=== PATIENT | male | born 1935 | race Caucasian/White ===

== ENCOUNTER 2018-07-01 00:48 | Outpatient (CLI) | payer MEDICARE, BC ==
[2018-07-01 12:14] LABS: Hemoglobin 14.3 g/dL (14.0-18.0); Mean Corpuscular HGB CONC 31.9 g/dL (32.0-36.0); Mean Corpuscular Hemoglobin 29.7 pg (27.0-31.0); Mean Corpuscular Volume 93.3 fL (78.0-98.0); Mean Platelet Volume 7.4 fL (7.4-10.4); Platelet Count 181 thou/uL (130-400); RBC Distribution Width 12.3 % (11.5-14.5)
[2018-07-01 12:17] LABS: PTT 30.6 SEC (22.9-36.1)
[2018-07-01 12:24] LABS: Prothrombin Time 13.6 SEC (12.0-14.7)
[2018-07-01 12:30] LABS: Anion Gap 10 mmol/L (10-20); BUN (Urea Nitrogen) 20 mg/dL (8.4-25.7); Calc. Creatinine Clearance 0 mL/min (70-130); Carbon Dioxide 29 mmol/L (23-31); Chloride 100 mmol/L (98-107); Estimated GFR-MDRD 62; Glucose 80 mg/dL (83-110); Potassium 4.3 mmol/L (3.5-5.1); Sodium 135 mmol/L (136-145)
--- NOTE | 2018-07-02 07:06 | EKG ---
Test Reason : Blood Pressure : / mmHG Vent. Rate : 069 BPM Atrial Rate : 069 BPM P-R Int : 270 ms QRS Dur : 100 ms QT Int : 378 ms P-R-T Axes : 035 -47 034 degrees QTc Int : 405 ms Sinus rhythm with 1st degree A-V block Pulmonary disease pattern /RSR'V1 Incomplete right bundle branch block Left anterior fascicular block Abnormal ECG When compared with ECG of 14-APR-2015 17:08, [place] interval has increased Vent. rate has decreased BY 36 BPM Confirmed by JAMI HALL ([id number]) on 07/02/2018 7:06:36 AM Referred By: EDILIA Confirmed By:JAMI HALL
== END 2018-07-01 00:49 | disposition home or self-care (01) ==
LOC: LABBT 00:48
PROVIDERS: ATTEND Urology
DX: Z01.818 Encounter for other preprocedural examination (principal); R82.8 Abnormal findings on cytological and histological examination of urine; Z85.51 Personal history of malignant neoplasm of bladder
CPT/HCPCS: 80048; 85027; 85610; 85730; 93005; 93010

== ENCOUNTER 2018-07-05 07:14 | Day surgery (SDC) | payer MEDICARE, BC ==
[2018-07-01 11:06] VITALS: BMI 26.2
[2018-07-05] MEDS ORDERED: Iothalamate Meglumine 60% 50 ML VIAL FS ONE (08:38)
[2018-07-05] MEDS ORDERED: Bupivacaine 0.5% 10 ML VIAL ONE (08:54)
[2018-07-05] MEDS ORDERED: Bupivacaine 0.75% W/DEXTROSE 8.25% 2 ML AMP ONE (08:55)
--- NOTE | 2018-07-05 10:43 | RAD ---
RETROGRADE BILATERAL UROGRAMS: DATE: 07/05/2018. HISTORY: Cystogram performed by Dr. Ramirez. FINDINGS: Four images from bilateral retrograde urograms are submitted. There is no evidence of hydronephrosis , although there is slight blunting of the calyces on the left. While ureters are mildly tortuous an d prominent, no filling defects are identified. The urinary bladder is incompletely distended. Thalia elation with intraoperative findings is recommended. POS: JASON
--- NOTE | 2018-07-05 11:04 | OP ---
DATE OF PROCEDURE: 07/05/2018 PREOPERATIVE DIAGNOSES: History of transitional cell cancer of the bladder and recent abnormal cytology. POSTOPERATIVE DIAGNOSES: History of transitional cell cancer of the bladder and recent abnormal cytology. PROCEDURES PERFORMED: Cysto bilateral retrogrades, bladder biopsy, and fulguration. ANESTHESIA: Spinal. ESTIMATED BLOOD LOSS: Minimal. DRAINS PLACED: An 18-[place] Pathak catheter with 20 mL in the balloon. FINDINGS: There is no evidence of any stricture disease. He has had prior TUR of the prostate. He had some thickening of the bladder mucosa along the trigone in the bladder neck on the left than the right side. He had no obvious bladder tumor, foreign body, or stone. He had two ureteral orifices in normal position and retrograde studies did not show any persistent filling defects or abnormalities. OPERATIVE TECHNIQUE: Obtained written and verbal consent from the patient and after receiving IV Ancef, he was taken to the operating suite. He was placed in supine position on the treatment table. PlexiPulses were placed in his lower extremities and turned on. He was given a spinal anesthetic and when cystic effect, he was placed in the dorsal lithotomy position and sterilely prepped and draped. Cystoscopy was performed with a 22-[place] sheath. This was well lubricated and passed under direct vision through the male urethra and into the bladder with an aid with 30-degree lens and video camera and monitor. The bladder was filled and emptied number of times being examined with both the 30 and the 70-degree lens. We then brought back the 30-degree lens and brought in a 5-[place] tip catheter and we did bilateral retrograde studies. This was done by first positioning the patient underneath the camera and getting a projection camera operator film with the fluoroscopy unit. We then passed the catheter into the right ureteral orifice and injected contrast slowly in a retrograde manner filling out the ureter in its entirety in the upper collecting system and taken numerous films. We then did the same on the left side and took drainage films. At this point, we brought in a cold cup biopsy forceps and biopsied areas on the right wall, posterior wall, left wall, trigone, and prostatic urethra. These were then all cauterized with a Bugbee. There was good hemostasis. The instruments were removed. Pathak catheter was sterilely inserted. It was draining clear urine. It was hooked up to a drainage bag and he was taken out of the dorsal lithotomy position. He was then taken by stretcher to the recovery room. Job ID: [id number]
== END 2018-07-05 12:00 | disposition home or self-care (01) ==
LOC: SDC 07:14
PROVIDERS: ATTEND Urology
PROC: 0TBB8ZX Excision of Bladder, Via Natural or Artificial Opening Endoscopic, Diagnostic (ICD-10-PCS; principal; 2018-07-05)
PROC: BT141ZZ Fluoroscopy of Kidneys, Ureters and Bladder using Low Osmolar Contrast (ICD-10-PCS; 2018-07-05)
DX: C67.8 Malignant neoplasm of overlapping sites of bladder (principal); I10 Essential (primary) hypertension; E78.5 Hyperlipidemia, unspecified; M10.9 Gout, unspecified; M19.90 Unspecified osteoarthritis, unspecified site; Z87.891 Personal history of nicotine dependence; Z79.82 Long term (current) use of aspirin; Z79.899 Other long term (current) drug therapy; Z88.2 Allergy status to sulfonamides; Z91.040 Latex allergy status; Z91.048 Other nonmedicinal substance allergy status
CPT/HCPCS: 74420; 88305; 88342; 88360; J3490; Q9961

== ENCOUNTER 2019-08-13 12:42 | Observation (INO) | payer MEDICARE, BC ==
[~2019-08-13 12:42] MED LIST: Iopamidol-370 76% 500 ML 1 ML ONE
--- NOTE | 2019-08-13 13:01 | CT ---
CT HEAD NONCONTRAST: HISTORY: Global aphasia. Chronic altered mental status. FINDINGS: There is no evidence of acute intracranial hemorrhage or infarct. Diffuse cortical atrophy and chroni c ischemic small vessel disease are again demonstrated. Arachnoid cyst at the anterior floor of the left middle cranial fossa is stable. There is no mass effect or shift of midline structures. Visualized paranasal sinuses remain well aera evin. IMPRESSION : Diffuse cortical atrophy and other chronic-type findings are stable. No acute intracranial abnormalit ies are demonstrated. Findings were called to Dr. Mosqueda in the emergency department at 1257 hours. Code CR. Transcribed Date/Time: 08/13/2019 1:31 PM
[2019-08-13 13:05] LABS: Hemoglobin 15.1 g/dL (14.0-18.0); Mean Corpuscular HGB CONC 33.7 g/dL (32.0-36.0); Mean Corpuscular Hemoglobin 31.3 pg (27.0-31.0); Mean Platelet Volume 7.3 fL (7.4-10.4); Platelet Count 154 thou/uL (130-400); RBC Distribution Width 12.8 % (11.5-14.5); Red Blood Cell (RBC) Count 4.82 mill/uL (4.70-6.10)
[2019-08-13 13:10] LABS: PTT 26.5 SEC (22.9-36.1); Prothrombin Time 12.7 SEC (12.0-14.7)
[2019-08-13 13:22] LABS: ALT (SGPT) 12 U/L (8-55); AST (SGOT) 14 U/L (5-34); Albumin 3.9 g/dL (3.4-4.8); Alkaline Phosphatase 59 U/L (40-110); Anion Gap 16 mmol/L (10-20); BUN (Urea Nitrogen) 20 mg/dL (8.4-25.7); Bilirubin, Total 0.7 mg/dL (0.2-1.2); CK (CPK) 49 U/L (30-200); Calc. Creatinine Clearance 0 mL/min (70-130); Calcium 9.3 mg/dL (7.8-10.44); Carbon Dioxide 22 mmol/L (23-31); Chloride 100 mmol/L (98-107); Estimated GFR-MDRD 65; Globulin 3.7 g/dL (2.4-3.5); Glucose 85 mg/dL (83-110); Potassium 4.7 mmol/L (3.5-5.1); Protein, Total 7.6 g/dL (5.8-8.1); Sodium 133 mmol/L (136-145)
[2019-08-13 13:24] LABS: Eosinophils 1 % (0-10); Lymphocytes 74 % (21-51); MDiff Complete? YES; Monocytes 5 % (0-10); Neutrophil 18 % (42-75); Platelet Morphology Comment Appears Adequate; RBC Morphology Normal; Reactive Lymphocytes 2 % (0-10)
--- NOTE | 2019-08-13 13:25 | CT ---
CT ANGIOGRAM NECK WITH IV CONTRAST AND 3D IMAGING CT ARTERIOGRAM HEAD WITH IV CONTRAST AND 3D IMAGING: HISTORY: Global aphasia. CVA. FINDINGS: Calcification throughout the arterial structures. Normal origin of the great vessels at the aortic ar ch with good flow into each carotid and vertebral system. Nonspecific lymph nodes are apparent within the partially visualized upper mediastinum and along each jugular chain. At the right carotid bifurcation, no contrast is seen into the right internal carotid artery. It is r econstituted intracranially by an intact [place]. Left carotid bifurcation and internal carotid artery are widely patent. Hemostasis clips near the left carotid bifurcation suggest prior ochoa rgery. [place] is intact. Good flow into each cerebral and cerebellar system. No enhancing brain le sions are apparent. IMPRESSION : 1. Chronic occlusion of the right internal carotid artery. Stable compared to MRI from 2016. 2. No acute vascular abnormalities are demonstrated. 3. Atherosclerosis. Findings were called to Dr. Mosqueda in the emergency department at 1319 hours. Code CR. Transcribed Date/Time: 08/13/2019 1:34 PM
[2019-08-13] MEDS ORDERED: traMADol HCl 50 MG TAB ONE (13:46)
[2019-08-13 13:57] LABS: Bacteria/HPF None Seen HPF (None Seen); Bilirubin Negative (Negative); Blood, Urine Negative (Negative); Clarity Clear (Clear); Glucose, Urine (Dipstick) Normal (Negative); Leukocyte 250 Leu/uL (Negative); Nitrite Negative (Negative); Protein, Urine (Dipstick) Negative (Neg-Trace); RBC/HPF 0-3 HPF (0-3); Squamous Epithelial 0-3 HPF (0-3); Urobilinogen Normal mg/dL (Less than 2); WBC/HPF 21-50 HPF (0-3)
--- NOTE | 2019-08-13 14:38 | PDOC.FPRHP ---
- History of Present Illness Chief Complaint: Unresponsive History of Present Illness: 83 yo M w/ PMHx of TIA/CVA, CLL, and dementia presented to the ED via EMS due to decreased responsiveness and AMS at home. Daughter over the phone states that due to patient's hx of dementia and CVA's, at baseline he ambulates minimally with a walker, is minimally verbally responsive, and spends most of his time in a recliner. He has known internal carotid stenosis on the right and previously had surgery on his left carotid. This morning when daughter visited pt was less responsive and difficult to arouse so they called EMS. By the time he arrived to the ED pt had waxing and waning level of responsiveness but eventually reached his baseline mental status. Daughter and deny any new recent events or illnesses. No cough, SOB, urine changes, N/V/D. Pt is unable to add to his history but will communicate "yes" and "no" and follow commands well. - Allergies/Adverse Reactions Allergies Allergy/AdvReac Type Severity Reaction Status Date / Time latex Allergy Intermediate BLISTERS Verified 07/31/19 08:10 Sulfa (Sulfonamide Allergy Intermediate Rash Verified 07/31/19 08:10 Antibiotics) adhesive Allergy Verified 07/31/19 08:10 sulfamethoxazole Allergy Rash Verified 07/31/19 08:10 [From Bactrim] trimethoprim [From Bactrim] Allergy Verified 07/31/19 08:10 - Home Medications Medication Instructions Recorded Confirmed Type Aspirin [Ecotrin Low Strength] 81 mg PO DAILY 03/02/14 08/13/19 History Benifiber 2 teaspoon PO HS 03/02/14 08/13/19 History Olmesartan/Hydrochlorothiazide 0.5 tablet PO DAILY 03/02/14 08/13/19 History [Benicar HCT] Ubidecarenone [Co Q-10] 200 mg PO DAILY 03/02/14 08/13/19 History Areds-2 1 tab PO BID 12/13/15 08/13/19 History Rosuvastatin [Crestor] 10 mg PO HS 12/13/15 08/13/19 History Calcium Carbonate [Tums] 1,000 mg PO QID PRN 01/28/16 08/13/19 History Carboxymethylcellulos/Glycerin 5 ml OP TID 01/28/16 08/13/19 History [Refresh Optive Eye Drops] Acetaminophen [Tylenol] 1 cap PO ASDIR PRN 07/01/18 08/13/19 History Memantine HCl 1 tab PO ASDIR 07/01/18 08/13/19 History Multivit-Min/FA/Lycopen/Lutein 1 tab PO Q2DAYS 07/01/18 08/13/19 History [Centrum Silver Tablet] - History PMHx: HTN, HLD, CVA/TIA, bladder cancer (remission), post operative DVT, chronic lymphocytic leukemia PSHx: Bladder resection, left carotid endarterctomy FHx: Non contributory Social: No alcohol, drugs, or tobacco - Review of Systems ROS unobtainable: due to mental status Respiratory: denies: shortness of breath Cardiovascular: denies: chest pain Gastrointestinal: denies: abdominal pain - Vital signs BP: 169/81, MAP: 110, Pulse: 72, Resp: 16, Temp: 98.5 (Oral), Pain: 0, O2 sat: 100 on (Room Air), Wt: 93kg - Physical Exam Constitutional: NAD, well developed HEENT: normocephalic and atraumatic -HEENT: diminished left lateral gaze, likely left visual field deficit Heart: RRR, normal S1/S2, no murmurs/rubs/gallops Lungs: CTAB, no respiratory distress Abdomen: soft, non-tender, bowel sounds present Musculoskeletal: normal structure -Musculoskeletal: Poor muscular tone globally -Neurological: Able to follow commands, visual deficit as above, strength 3/5 globally, poor tongue projection but no deviation, some slightly garbled speech, difficulty with word finding Skin: no rash/lesions, capillary refill <2 seconds -Heme/Lymphatic: Senile purpura to bilateral upper extremities Psychiatric: normal mood and affect FMR H&P: Results - Labs Result Diagrams: 08/13/19 12:48 08/13/19 12:48 Lab results: WBC 18.0 thou/uL (4.8-10.8) H 08/13/19 12:48 Hgb 15.1 g/dL (14.0-18.0) 08/13/19 12:48 Hct 44.8 % (42.0-52.0) 08/13/19 12:48 MCV 93.0 fL (78.0-98.0) 08/13/19 12:48 Plt Count 154 thou/uL (130-400) 08/13/19 12:48 Sodium 133 mmol/L (136-145) L 08/13/19 12:48 Potassium 4.7 mmol/L (3.5-5.1) 08/13/19 12:48 Chloride 100 mmol/L (98-107) 08/13/19 12:48 Carbon Dioxide 22 mmol/L (23-31) L 08/13/19 12:48 BUN 20 mg/dL (8.4-25.7) 08/13/19 12:48 Creatinine 1.08 mg/dL (0.7-1.3) 08/13/19 12:48 Glucose 85 mg/dL (83-110) 08/13/19 12:48 Lactic Acid 1.5 mmol/L (0.5-2.2) 08/13/19 12:48 Calcium 9.3 mg/dL (7.8-10.44) 08/13/19 12:48 Total Bilirubin 0.7 mg/dL (0.2-1.2) 08/13/19 12:48 AST 14 U/L (5-34) 08/13/19 12:48 ALT 12 U/L (8-55) 08/13/19 12:48 Alkaline Phosphatase 59 U/L (40-110) 08/13/19 12:48 Creatine Kinase 49 U/L (30-200) 08/13/19 12:48 Serum Total Protein 7.6 g/dL (5.8-8.1) 08/13/19 12:48 Albumin 3.9 g/dL (3.4-4.8) 08/13/19 12:48 Urine Ketones Negative mg/dL (Negative) 08/13/19 13:40 Urine Blood Negative (Negative) 08/13/19 13:40 Urine Nitrite Negative (Negative) 08/13/19 13:40 Ur Leukocyte Esterase 250 Gonzalez/uL (Negative) A 08/13/19 13:40 Urine RBC 0-3 HPF (0-3) 08/13/19 13:40 Urine WBC 21-50 HPF (0-3) A 08/13/19 13:40 Ur Squamous Epith Cells 0-3 HPF (0-3) 08/13/19 13:40 Urine Bacteria None Seen HPF (None Seen) 08/13/19 13:40 - EKG Interpretation EKG: HR 77, with no ectopics, Interpretation:, Conduction with, ST, T waves normal, [place], left, Other findings include:, First-degree AV block, incomplete right bundle branch block, Clinical impression:, non-specific EKG. - Radiology Interpretation CT scan - head Status: report reviewed by me (Diffuse cortical atrophy and other chronic-type findings are stable. No acute intracranial abnormalities are demonstrated.) Other Status: report reviewed by me (CTA head and neck: 1. Chronic occlusion of the right internal carotid artery. Stable compared to MRI from 2016. 2. No acute vascular abnormalities are demonstrated. 3. Atherosclerosis.) FMR H&P: A/P - Problem List (1) Altered mental status Current Visit: Yes Status: Acute Code(s): R41.82 - ALTERED MENTAL STATUS, UNSPECIFIED (2) CLL (chronic lymphocytic leukemia) Current Visit: Yes Status: Acute Code(s): C91.10 - CHRONIC LYMPHOCYTIC LEUK OF B-CELL TYPE NOT ACHIEVE REMIS (3) Hx of bladder cancer Current Visit: Yes Status: Acute Code(s): Z85.51 - PERSONAL HISTORY OF MALIGNANT NEOPLASM OF BLADDER (4) Hx of deep venous thrombosis Current Visit: Yes Status: Acute Code(s): Z86.718 - PERSONAL HISTORY OF OTHER VENOUS THROMBOSIS AND EMBOLISM (5) History of CVA (cerebrovascular accident) Current Visit: Yes Status: Acute Code(s): Z86.73 - PRSNL HX OF TIA (TIA), AND CEREB INFRC W/O RESID DEFICITS (6) Internal carotid artery stenosis Current Visit: Yes Status: Acute Code(s): I65.29 - OCCLUSION AND STENOSIS OF UNSPECIFIED CAROTID ARTERY (7) Dyslipidemia Current Visit: No Status: Chronic Code(s): E78.5 - HYPERLIPIDEMIA, UNSPECIFIED (8) HTN (hypertension) Current Visit: No Status: Chronic Code(s): I10 - ESSENTIAL (PRIMARY) HYPERTENSION - Plan Altered Mental Status 2/2 TIA vs CVA - Hx of TIA and CVA with known carotid stenosis and previous endarterectomy - CT head consistent with old infarcts - CTA head and neck - chronic right internal carotid stenosis and left carotid post operative changes - Dysphagia screen ordered, NPO until completed - PT/OT/Speech consulted - MRI brain - TSH ordered - Recent normal echo last month, will no repeat - NIH stroke scales and neuro checks per protocol - Will medically optimize with full dose asa and high dose statin - Admit stroke obs Chronic Medical Problems: HTN - Hold home benicar for 24hr permissive htn HLD - Increase crestor to 20mg CLL - Leukocytosis at 18, stable per history, expectant management Carotid stenosis - complete on the right, not surgical candidate, medically optimize as above Hx of bladder cancer - Per family is in remission VTE: Lovenox Diet: NPO until screened then HH IVF: SL Code: DNAR Dispo: Admit to stroke obs for further neuro monitoring and imaging. Will medically optimize the patient prior to discharge. ELOS <48 hr PCP: Dr. Chris Christian FMR H&P: Upper Level - Plan Date/Time: 08/13/19 9838 I, Epifanio Stewart DO, have evaluated this patient and agree with findings/plan as outlined by internet ecommerce specialist resident. Pertinent changes/additions are listed here. HPI Mr. Castano is an 83 yo male with a pmhx significant for CVA, R ICA occlusion, L endarterectomy, advanced dementia At the time of my examination is intermittently AOx1, which is baseline per family. He has advanced dementia and unable to provide hx. Per family and ED records he was in his usual state of health this morning when he became somnolent and non-verbal, when this persisted family decided to bring him to ED. They report he has had these episodes previously. They deny any complaints of chest pain, sob, fever, dysuria or other pain. PE General: NAD HEENT: NCAT Chest: even inspiratory and expiratory effort, no retractions Abdomen: non distended, NTTP MSK: no weakness, or loss of ROM noted Extremities: non-edematous, pulses present Neuro: word finding difficulty, CN II-XII intact, strength 5/5, no focal deficits See internet ecommerce specialist portion for full ROS, PE, labs and vitals. A/P TIA in the setting of CVA, recurrent TIAs - currently at baseline per family, labs wnl, CTA head/neck show previously demonstrated lesions - EKG 1st degree AV block - full risk stratification, MRI brain pending - asa 325, increase statin, permissive htn 24 hrs Htn - permissive htn CLL - stage one, stable per family Dispo: stroke obs for further risk stratification and monitoring Addendum - Attending - Attending Attestation Date/Time: 08/13/19 3485 I personally evaluated the patient and discussed the management with Dr. Albright/ Terry. I agree with the History, Examination, Assessment and Plan documented above with any addition or exceptions noted below.
[2019-08-13] MEDS ORDERED: Aspirin Chewable 81 MG TAB ONE (14:59)
[2019-08-13 16:08] VITALS: BMI 27.2
[2019-08-13] MEDS ORDERED: Acetaminophen 325 MG TAB PO PRN (16:17)
[2019-08-13] MEDS ORDERED: hydrALAZINE 20 MG/ML VIAL SLOW IVP PRN (16:17)
[2019-08-13] MEDS ORDERED: Calcium Carbonate 500 MG ChewTAB PO PRN (16:27)
[2019-08-13] MEDS ORDERED: Enoxaparin Sodium 40 MG/0.4 ML SYRINGE SC SCH (16:30)
[2019-08-13] MEDS ORDERED: Prevnar 13-Val Conj/PF 0.5 ML SYRINGE IM ONE (16:30)
[2019-08-13] MEDS: Polyvinyl Alcohol 1.4%/Povidone 0.6% Opth Drops EA EYE SCH (20:58)
[2019-08-13] MEDS ORDERED: Rosuvastatin 20 MG TAB PO SCH (21:00)
[2019-08-13] MEDS ORDERED: REFRESH PLUS (Carboxymethylcellulose 0.5%) Opth Drops EA EYE SCH (21:00)
[2019-08-14 04:48] LABS: Anion Gap 13 mmol/L (10-20); BUN (Urea Nitrogen) 18 mg/dL (8.4-25.7); Calc. Creatinine Clearance 82 mL/min (70-130); Calcium 9.2 mg/dL (7.8-10.44); Carbon Dioxide 26 mmol/L (23-31); Cardiac Risk 3.8 (Less than 4.5); Chloride 100 mmol/L (98-107); Cholesterol 128 mg/dl (< 200 Desired); Estimated GFR-MDRD 81; Glucose 94 mg/dL (83-110); HDL Cholesterol 34 mg/dL (>60 Neg Risk); LDL Cholesterol, Calculated 61 mg/dL; Sodium 135 mmol/L (136-145); Triglycerides 167 mg/dL (Less than 150)
[2019-08-14 05:07] LABS: Eosinophils 1 % (0-10); Hemoglobin 14.9 g/dL (14.0-18.0); Lymphocytes 39 % (21-51); MDiff Complete? YES; Mean Corpuscular HGB CONC 33.8 g/dL (32.0-36.0); Mean Corpuscular Hemoglobin 30.9 pg (27.0-31.0); Mean Corpuscular Volume 91.3 fL (78.0-98.0); Mean Platelet Volume 7.3 fL (7.4-10.4); Monocytes 4 % (0-10); Neutrophil 47 % (42-75); Platelet Count 151 thou/uL (130-400); Platelet Morphology Comment Appears Adequate; RBC Distribution Width 12.6 % (11.5-14.5); Reactive Lymphocytes 9 % (0-10); Red Blood Cell (RBC) Count 4.84 mill/uL (4.70-6.10); White Blood Cell (WBC) Count 18.2 thou/uL (4.8-10.8)
--- NOTE | 2019-08-14 06:11 | PDOC.FM ---
- Subjective Subjective: Pt without complaints this morning. Recalls having issues yesterday and feels these have all resolved. Voices understanding about the plan of care for today. No events overnight. No further neurologic manifestations or derangements since admission. - Objective Vital Signs & Weight: Vital Signs (12 hours) Temp Pulse Resp BP BP Pulse Ox 08/14/19 00:00 97.7 F 75 16 150/68 H 94 L 08/13/19 20:00 98.1 F 82 14 140/68 96 Weight Weight 91.2 kg I&O: 08/12/19 08/13/19 08/14/19 06:59 06:59 06:59 Intake Total 400 Output Total 400 Balance 0 Result Diagrams: 08/14/19 04:11 08/14/19 04:11 Phys Exam - Physical Examination Constitutional: NAD HEENT: sclera anicteric Neck: full ROM No respiratory distress Cardiovascular: RRR, no significant murmur Musculoskeletal: no edema Slow but comlete responses, moves all 4 extremities spontaneously, no droop Appears to continue to be at baseline Psychiatric: normal affect Deviation from normal: A&O to self Dx/Plan (1) Altered mental status Code(s): R41.82 - ALTERED MENTAL STATUS, UNSPECIFIED Status: Acute (2) CLL (chronic lymphocytic leukemia) Code(s): C91.10 - CHRONIC LYMPHOCYTIC LEUK OF B-CELL TYPE NOT ACHIEVE REMIS Status: Acute (3) Hx of bladder cancer Code(s): Z85.51 - PERSONAL HISTORY OF MALIGNANT NEOPLASM OF BLADDER Status: Acute (4) Hx of deep venous thrombosis Code(s): Z86.718 - PERSONAL HISTORY OF OTHER VENOUS THROMBOSIS AND EMBOLISM Status: Acute (5) History of CVA (cerebrovascular accident) Code(s): Z86.73 - PRSNL HX OF TIA (TIA), AND CEREB INFRC W/O RESID DEFICITS Status: Acute (6) Internal carotid artery stenosis Code(s): I65.29 - OCCLUSION AND STENOSIS OF UNSPECIFIED CAROTID ARTERY Status : Acute (7) Dyslipidemia Code(s): E78.5 - HYPERLIPIDEMIA, UNSPECIFIED Status: Chronic (8) HTN (hypertension) Code(s): I10 - ESSENTIAL (PRIMARY) HYPERTENSION Status: Chronic - Plan Plan: Altered Mental Status 2/2 TIA vs CVA - PT/OT/Speech consulted - MRI brain ordered - TSH nml - Recent normal echo last month, will no repeat - full dose asa and high dose statin Chronic Medical Problems: HTN - Restart home benicar today HLD - Increased crestor to 20mg CLL - Leukocytosis at 18, stable per history, expectant management Carotid stenosis - complete right ICA, not surgical candidate, medically optimize as above Hx of bladder cancer - Per family is in remission VTE: Lovenox Diet: HH IVF: SL Code: DNAR Dispo: Stroke Obs for CVA/TIA evaluation. Clinically stable. Awaiting MRI today. Has had recent echo that was normal. Family expressed wishes to avoid any surgeries/procedures. Will medically optimize the patient prior to discharge. ELOS <48 hr PCP: Dr. Chris Christian Addendum - Attending - Attending Attestation Date/Time: 08/14/19 7362 I personally evaluated the patient and discussed the management with Dr. Albright. I agree with the History, Examination, Assessment and Plan documented above with any addition or exceptions noted below. Patient back to baseline. Awaiting MRI today but anticipate he will be stable for discharge once that results. Statin increased.
[2019-08-14] MEDS: Polyvinyl Alcohol 1.4%/Povidone 0.6% Opth Drops EA EYE SCH (08:39)
[2019-08-14] MEDS ORDERED: Enoxaparin Sodium 40 MG/0.4 ML SYRINGE SC SCH (09:00)
[2019-08-14] MEDS ORDERED: Hydrochlorothiazide 25 MG TAB PO SCH (09:00)
[2019-08-14] MEDS ORDERED: Ubidecarenone 50 MG CAP PO SCH (09:00)
[2019-08-14] MEDS ORDERED: Losartan 25 MG TAB PO SCH (09:00)
[2019-08-14] MEDS ORDERED: Multivitamin W/ Minerals 1 TAB PO SCH (09:00)
[2019-08-14] MEDS ORDERED: Aspirin 325 mg Enteric Coated Tablet PO SCH (09:00)
--- NOTE | 2019-08-14 10:17 | MRI ---
MRI brain noncontrast HISTORY: CVA. COMPARISON: 03/18/2016. FINDINGS: There is no evidence of acute intracranial hemorrhage or infarct. Diffuse cortical atrophy and mild chronic ischemic small vessel disease are similar in appearance to the prior study. Arachnoid cyst at the anterior floor of the left middle cranial fossa is unchanged in appearance from the prior exam. Signal within the expected course of the right internal carotid artery is consistent with known chron ic occlusion. Mucosal thickening is now evident within the left mastoid air cells in addition to the right. IMPRESSION : Right ICA occlusion and other chronic-type findings are stable. No acute intracranial abnormalities are demonstrated.
[2019-08-14 11:40] VITALS: TEMP 98.5
[2019-08-14 13:55] VITALS: BP 151/70
--- NOTE | 2019-08-14 18:19 | DIS ---
DATE OF ADMISSION: 08/13/2019 DATE OF DISCHARGE: 08/14/2019 DISCHARGE ATTENDING: Joshua Knight MD RESIDENT: Josh Albright DO PRIMARY CARE PHYSICIAN: Shon Pena MD CONSULTATIONS: None. PROCEDURES AND IMAGING: Brain CT. Impression, diffuse cortical atrophy and other contact findings that are stable with no acute intracranial abnormalities. CTA of head and neck. Impression, chronic occlusion of the right internal carotid artery, stable from MRI in 2016. No acute vascular abnormalities demonstrated. Atherosclerosis. Brain MRI. Impression. Right ICA occlusion and other chronic-type findings that are stable with no acute intracranial abnormalities noted. PRIMARY DIAGNOSES: 1. Transient ischemic attack. 2. Chronic right internal carotid artery stenosis. 3. Dementia. SECONDARY DIAGNOSES: 1. Chronic lymphocytic leukemia. 2. Dyslipidemia. 3. Hypertension. DISCHARGE MEDICATIONS: 1. Benefiber 2 teaspoons at bedtime. 2. CoQ10 of 200 mg daily. 3. Aspirin 325 mg daily. 4. Benicar 40/25 mg p.o. daily. 5. AREDS-2 one tablet p.o. b.i.d. 6. Tums 1000 mg p.o. q.i.d. 7. Refresh Optive eye drops 15 mL drops 5 mL OP t.i.d. 8. Memantine 10 mg p.o. as directed. 9. Centrum Silver tablet p.o. daily. 10. Crestor 20 mg p.o. at bedtime. DISCONTINUED MEDICATIONS: 1. Aspirin 81 mg daily. 2. Crestor 10 mg daily. HISTORY OF PRESENT ILLNESS AND HOSPITAL COURSE: An 83-year-old male with past medical history significant for both TIA and CVA, presented to the emergency department via EMS with complaints of altered mental status. Due to difficulty obtaining history from the patient, the patient's daughter and who is MPOA, were contacted. They stated that due to the patient's baseline dementia and history of TIA and CVA, his baseline mental status is low with his baseline function being minimal ambulation with a walker and spending most of the time in a recliner. They state that he is able to speak short responses, but has a little to no long or short-term memory at this point. They stated that the reason that they called EMS was because the patient was less responsive than he usually is at his baseline, and the last time he was like this was about a year ago when he was diagnosed with a transient ischemic attack. Upon presentation to the emergency department, the patient had waxing and waning mental status with an upward trend eventually settling at baseline. He had a CT and CTA of the head and neck that showed no acute stroke, but chronic right internal carotid artery stenosis. The patient was subsequently admitted to the hospital for neurostatus monitoring and further neuroimaging. The following day, the patient had an MRI of his brain, which showed consistent findings to the CT and agreed with all chronic and stable findings of chronic ischemic vessel changes and right internal carotid artery stenosis. At the time of discharge, the patient remained at baseline mental status. MPOA and daughter were contacted and informed of these findings and were agreeable to take the patient home for further home care. DISCHARGE INSTRUCTIONS: 1. Location: Home. 2. Diet: Heart healthy. 3. Activity: As tolerated. 4. Followup: Follow up with primary doctor, Dr. Pena, within 7 days. Job ID: [id number]
--- NOTE | 2019-08-15 16:36 | CT ---
CT ANGIOGRAM NECK WITH IV CONTRAST AND 3D IMAGING CT ARTERIOGRAM HEAD WITH IV CONTRAST AND 3D IMAGING: HISTORY: Global aphasia. CVA. FINDINGS: Calcification throughout the arterial structures. Normal origin of the great vessels at the aortic ar ch with good flow into each carotid and vertebral system. Nonspecific lymph nodes are apparent within the partially visualized upper mediastinum and along each jugular chain. At the right carotid bifurcation, no contrast is seen into the right internal carotid artery. It is r econstituted intracranially by an intact [place]. Left carotid bifurcation and internal carotid artery are widely patent. Hemostasis clips near the left carotid bifurcation suggest prior ochoa rgery. [place] is intact. Good flow into each cerebral and cerebellar system. No enhancing brain le sions are apparent. IMPRESSION : 1. Chronic occlusion of the right internal carotid artery. Stable compared to MRI from 2016. 2. No acute vascular abnormalities are demonstrated. 3. Atherosclerosis. Findings were called to Dr. Mosqueda in the emergency department at 1319 hours. Code CR. Transcribed Date/Time: 08/15/2019 4:36 PM
--- NOTE | 2019-08-17 13:10 | EKG ---
Test Reason : ERS.MLO Blood Pressure : / mmHG Vent. Rate : 077 BPM Atrial Rate : 077 BPM P-R Int : 278 ms QRS Dur : 106 ms QT Int : 374 ms P-R-T Axes : 044 -44 021 degrees QTc Int : 423 ms Sinus rhythm with 1st degree A-V block Left axis deviation Incomplete right bundle branch block Possible Anterolateral infarct , age undetermined Abnormal ECG Confirmed by LIANE ACEVEDO DO ([id number]), avid editor LV CRAVEN ([id number]) on 08/17/2019 1:10:41 PM Referred By: Confirmed By:LIANE ACEVEDO DO
== END 2019-08-14 15:16 | disposition home or self-care (01) ==
LOC: ERS 12:42 → 2SE 15:56
PROVIDERS: ADMIT Student in an Organized Health Care Education/Training Program; ATTEND Student in an Organized Health Care Education/Training Program
DX: I65.21 Occlusion and stenosis of right carotid artery (principal); F03.90 Unspecified dementia, unspecified severity, without behavioral disturbance, psychotic disturbance, mood disturbance, and anxiety; C91.10 Chronic lymphocytic leukemia of B-cell type not having achieved remission; E78.5 Hyperlipidemia, unspecified; I10 Essential (primary) hypertension; I70.90 Unspecified atherosclerosis; Z66 Do not resuscitate; Z85.51 Personal history of malignant neoplasm of bladder; Z86.718 Personal history of other venous thrombosis and embolism; Z86.73 Personal history of transient ischemic attack (TIA), and cerebral infarction without residual deficits; Z87.891 Personal history of nicotine dependence; Z79.82 Long term (current) use of aspirin; Z79.899 Other long term (current) drug therapy; Z88.2 Allergy status to sulfonamides; Z88.8 Allergy status to other drugs, medicaments and biological substances; Z91.040 Latex allergy status; Z91.048 Other nonmedicinal substance allergy status; Z98.890 Other specified postprocedural states
CPT/HCPCS: 51701; 70450; 70496; 70498; 70551; 80048; 80061; 82550; 82962; 83605; 84484; 85025; 85610; 85730; 93005; 94760; 96372 ×2; 97116; 97139; 99285; G0378 ×3; 36415; 36416; 80053; 81003; 81015; 84443; J1650; Q9967

== ENCOUNTER 2019-08-16 14:18 | Inpatient (IN) | payer MEDICARE, BC ==
--- NOTE | 2019-08-16 14:55 | RAD ---
Exam: Chest one view HISTORY:Altered mental status. Right-sided weakness from stroke last week. Comparison: None FINDINGS: Cardiac silhouette: Normal Aorta: Atherosclerosis Pulmonary vessels: Normal Costophrenic angles: Clear LUNGS: No masses or consolidation. Pneumothorax: None Osseous abnormalities: None IMPRESSION: No acute cardiopulmonary process. Atherosclerosis.
[2019-08-16 14:58] LABS: Base Excess-Venous 2.7 mmol/L (-2.0 to 3.0); Bicarbonate (HCO3v) 26.7 mmol/L (22.0-28.0); CO2 Tension (PvCO2) 38.3 mmHg (40.0-50.0); Chloride 98 mmol/L (98-107); Hemoglobin - Calc 15.2 g/dL (14.0-18.0); Potassium 3.9 mmol/L (3.5-5.1); Sodium 134 mmol/L (138-145); T. Carbon Dioxide 27.9 mmol/L (22.0-28.0); vO2 Saturation-calc 67.1 % (60.0-85.0)
[2019-08-16 14:58] LABS: Hemoglobin 14.6 g/dL (14.0-18.0); Mean Corpuscular HGB CONC 32.9 g/dL (32.0-36.0); Mean Corpuscular Hemoglobin 30.3 pg (27.0-31.0); Mean Corpuscular Volume 92.3 fL (78.0-98.0); Mean Platelet Volume 7.1 fL (7.4-10.4); Platelet Count 165 thou/uL (130-400); RBC Distribution Width 12.8 % (11.5-14.5); Red Blood Cell (RBC) Count 4.82 mill/uL (4.70-6.10)
[2019-08-16 15:02] LABS: Bilirubin Negative (Negative); Blood, Urine Negative (Negative); Clarity Turbid (Clear); Glucose, Urine (Dipstick) Normal (Negative); Leukocyte 500 Leu/uL (Negative); Nitrite Negative (Negative); Protein, Urine (Dipstick) Negative (Neg-Trace); RBC/HPF 0-3 HPF (0-3); Squamous Epithelial 0-3 HPF (0-3); WBC/HPF Greater than 50 HPF (0-3)
[2019-08-16 15:13] LABS: Eosinophils 3 % (0-10); Lymphocytes 62 % (21-51); MDiff Complete? YES; Monocytes 3 % (0-10); Neutrophil 31 % (42-75); Platelet Morphology Comment Appears Adequate; RBC Morphology Normal; Reactive Lymphocytes 1 % (0-10)
[2019-08-16 15:17] LABS: Bacteria/HPF 2+ HPF (None Seen)
[2019-08-16 15:18] LABS: Renal Epithelial 0-3 HPF (None Seen); Transitional Epithelial 0-3 HPF (None Seen)
[2019-08-16 15:20] LABS: ALT (SGPT) 17 U/L (8-55); AST (SGOT) 14 U/L (5-34); Alkaline Phosphatase 71 U/L (40-110); Anion Gap 12 mmol/L (10-20); BUN (Urea Nitrogen) 23 mg/dL (8.4-25.7); Bilirubin, Total 0.6 mg/dL (0.2-1.2); CK (CPK) 77 U/L (30-200); Calc. Creatinine Clearance 0 mL/min (70-130); Calcium 9.2 mg/dL (7.8-10.44); Carbon Dioxide 28 mmol/L (23-31); Chloride 99 mmol/L (98-107); Estimated GFR-MDRD 59; Globulin 2.7 g/dL (2.4-3.5); Glucose 102 mg/dL (83-110); Protein, Total 6.7 g/dL (5.8-8.1); Sodium 135 mmol/L (136-145)
[2019-08-16] MEDS ORDERED: cefTRIAXone\\ROCEPHIN 1 GM VIAL ONE (15:53)
--- NOTE | 2019-08-16 16:45 | CT ---
Exam: Head CT without contrast HISTORY: Lethargy. Right-sided weakness. Recent stroke COMPARISON: 08/13/2019 FINDINGS: Hemorrhage: No intraparenchymal hemorrhage or extra-axial hematoma. Brain parenchyma: Cortical hernandez-white matter differentiation is preserved. No mass effect or midline shift. Basilar cisterns are patent. Ventricular system: Ventricles and sulci are patent and symmetric. Stable arachnoid cyst in the left middle cranial fossa. Calvarium: Intact. Sinuses and mastoid air cells: Adequate aeration. IMPRESSION: No acute intracranial process. No significant interval change.
--- NOTE | 2019-08-16 18:15 | PDOC.FPRHP ---
- History of Present Illness Chief Complaint: AMS History of Present Illness: Pt is an 83 yo male with PMH significant for dementia, HLD, hx of TIA vs CVA, R ICA stenosis, HTN, chronic lymphocytic leukemia who presents for AMS. He was just discharged 2 days ago for TIA work up after AMS. He lives with his who he went back to live with. His daughter was apart of his care this previous week. He is AAO x 0 during interview but is able to elicit how he is feeling. GSC 15. His is not present at the time so unable to obtain a full history. Due to AMS only able to obtain from pt no current cough, chest pain, abdominal pain, diarrhea. He states he has pain with urination. Currently in brief. Daughter had pt sent to ED by EMS. Amparo Ortiz, . She states he had an episode of unresponsiveness this morning. This was similar to how he presented on last admission. Family states over the last year he has had some stressful situations and did not return baseline after events. Family does not believe he returned to baseline after this previous admission due to waxing and waning mentation. They had help at home but due to COVID they do not have extra help. They would like to see him return to home. His last visit he had negative work up for acute CVA but chronic changes were noted. He does have a stable R ICA stenosis. Imaging revealed previous clippings from a likely surgery to his L ICA. In the ED he was found to have a possible UTI and treated with ceftriaxone. He was not given any fluids, vitals were stable other than mild HTN. - Allergies/Adverse Reactions Allergies Allergy/AdvReac Type Severity Reaction Status Date / Time latex Allergy Intermediate BLISTERS Verified 07/31/19 08:10 Sulfa (Sulfonamide Allergy Intermediate Rash Verified 07/31/19 08:10 Antibiotics) adhesive Allergy Verified 07/31/19 08:10 sulfamethoxazole Allergy Rash Verified 07/31/19 08:10 [From Bactrim] trimethoprim [From Bactrim] Allergy Verified 07/31/19 08:10 - Home Medications Medication Instructions Recorded Confirmed Type Benifiber 2 teaspoon PO HS 03/02/14 08/13/19 History Olmesartan/Hydrochlorothiazide 0.5 tablet PO DAILY 03/02/14 08/13/19 History [Benicar HCT] Ubidecarenone [Co Q-10] 200 mg PO DAILY 03/02/14 08/13/19 History Areds-2 1 tab PO BID 12/13/15 08/13/19 History Calcium Carbonate [Tums] 1,000 mg PO QID PRN 01/28/16 08/13/19 History Carboxymethylcellulos/Glycerin 5 ml OP TID 01/28/16 08/13/19 History [Refresh Optive Eye Drops] Acetaminophen [Tylenol] 1 cap PO ASDIR PRN 07/01/18 08/13/19 History Memantine HCl 1 tab PO ASDIR 07/01/18 08/13/19 History Multivit-Min/FA/Lycopen/Lutein 1 tab PO Q2DAYS 07/01/18 08/13/19 History [Centrum Silver Tablet] Aspirin [Ecotrin Regular Strength] 325 mg PO DAILY #30 tab 08/14/19 Rx Rosuvastatin [Crestor] 20 mg PO HS #30 tab 08/14/19 Rx - History PMHx: HTN, HLD, TIA vs CVA, R ICA Stenosis, CLL, bladder cancer (remission), post op DVT PSHx: L ICA endarterectomy, bladder resection FHx: non-contributory Social: no alcohol, drug, tobacco abuse - Review of Systems ROS unobtainable: other (See HPI for ROS able to be obtained from pt.) - Vital signs BP: 165/83 HR: 71 RR: 18 Tmax: 98.6 Pox: 96% on RA Wt: 86 kg - Physical Exam Constitutional: NAD, well developed HEENT: normocephalic and atraumatic, PERRLA, EOMI, conjunctiva clear, no scleral icterus, grossly normal hearing, normal nasal mucosa, MMM Neck: supple, FROM, trachea midline, no JVD Chest: no-tender to palpation, no lesions Heart: RRR, normal S1/S2, no murmurs/rubs/gallops, pulses present, no edema -Heart: distant heart sounds, did not appreciate carotid bruit Lungs: CTAB, no respiratory distress, good air movement, no rales/rhonchi -Lungs: Difficult to assess as pt has hard time rolling to side on his own. Abdomen: soft, non-tender, bowel sounds present Musculoskeletal: normal tone, ROM grossly normal Neurological: no focal deficit, CN II-XII intact, normal sensation Skin: good turgor, capillary refill <2 seconds, no jaundice Heme/Lymphatic: no petechia -Heme/Lymphatic: superficial ecchymosis on R arm -Psychiatric: AAO X 0, poor short term memory, conversation and can answer direct questions, GCS 15 FMR H&P: Results - Labs Result Diagrams: 08/16/19 14:46 08/16/19 14:46 Lab results: WBC 16.0 thou/uL (4.8-10.8) H 08/16/19 14:46 Hgb 14.6 g/dL (14.0-18.0) 08/16/19 14:46 Hct 44.5 % (42.0-52.0) 08/16/19 14:46 MCV 92.3 fL (78.0-98.0) 08/16/19 14:46 Plt Count 165 thou/uL (130-400) 08/16/19 14:46 VBG pCO2 38.3 mmHg (40.0-50.0) L 08/16/19 14:56 VBG pO2 33.2 mmHg (35.0-45.0) L 08/16/19 14:56 Sodium 135 mmol/L (136-145) L 08/16/19 14:46 Potassium 4.0 mmol/L (3.5-5.1) 08/16/19 14:46 Chloride 99 mmol/L (98-107) 08/16/19 14:46 Carbon Dioxide 28 mmol/L (23-31) 08/16/19 14:46 BUN 23 mg/dL (8.4-25.7) 08/16/19 14:46 Creatinine 1.18 mg/dL (0.7-1.3) 08/16/19 14:46 Glucose 102 mg/dL (83-110) 08/16/19 14:46 Calcium 9.2 mg/dL (7.8-10.44) 08/16/19 14:46 Total Bilirubin 0.6 mg/dL (0.2-1.2) 08/16/19 14:46 AST 14 U/L (5-34) 08/16/19 14:46 ALT 17 U/L (8-55) 08/16/19 14:46 Alkaline Phosphatase 71 U/L (40-110) 08/16/19 14:46 Ammonia 26 umol/L (18-72) 08/16/19 14:46 Creatine Kinase 77 U/L (30-200) 08/16/19 14:46 Serum Total Protein 6.7 g/dL (5.8-8.1) 08/16/19 14:46 Albumin 4.0 g/dL (3.4-4.8) 08/16/19 14:46 Urine Ketones Negative mg/dL (Negative) 08/16/19 14:30 Urine Blood Negative (Negative) 08/16/19 14:30 Urine Nitrite Negative (Negative) 08/16/19 14:30 Ur Leukocyte Esterase 500 Gonzalez/uL (Negative) A 08/16/19 14:30 Urine RBC 0-3 HPF (0-3) 08/16/19 14:30 Urine WBC Greater than 50 HPF (0-3) A 08/16/19 14:30 Ur Squamous Epith Cells 0-3 HPF (0-3) 08/16/19 14:30 Urine Bacteria 2+ HPF (None Seen) A 08/16/19 14:30 - EKG Interpretation EKG: RRR, First degree AV block - Radiology Interpretation Chest x-ray Status: image reviewed by me, report reviewed by me Additional comment: no acute abnormalities CT scan - head Status: report reviewed by me Additional comment: no acute processes FMR H&P: A/P - Problem List (1) Altered mental status Current Visit: No Status: Acute Code(s): R41.82 - ALTERED MENTAL STATUS, UNSPECIFIED (2) CLL (chronic lymphocytic leukemia) Current Visit: No Status: Acute Code(s): C91.10 - CHRONIC LYMPHOCYTIC LEUK OF B-CELL TYPE NOT ACHIEVE REMIS (3) History of CVA (cerebrovascular accident) Current Visit: No Status: Acute Code(s): Z86.73 - PRSNL HX OF TIA (TIA), AND CEREB INFRC W/O RESID DEFICITS (4) Internal carotid artery stenosis Current Visit: No Status: Acute Code(s): I65.29 - OCCLUSION AND STENOSIS OF UNSPECIFIED CAROTID ARTERY (5) Dyslipidemia Current Visit: No Status: Chronic Code(s): E78.5 - HYPERLIPIDEMIA, UNSPECIFIED (6) HTN (hypertension) Current Visit: No Status: Chronic Code(s): I10 - ESSENTIAL (PRIMARY) HYPERTENSION (7) Urinary tract infection Current Visit: Yes Status: Acute - Plan Pt is an 83 yo male here for: # UTI No bands noted, total neutrophils ~5. WBC elevated due to CLL. Pt admitted to dysuria but unsure if accurate with pt's AMS. - continue ceftriaxone - culture, gram stain pending # Progressive Dementia vs Acute Metabolic Encephalopathy I believe this to be worsening dementia as opposed to encephalopathy. Fam states pt has worsening dementia over previous year. - will discuss goals of care in the am on rounds. Already discussed possible placement but family would like to see pt home. Fam will be in around 0900 or 0930. - CM consulted - PT/OT ordered # Hx of CVA # Recent Discharge for TIA Recent imaging did not reveal CVA. Less likely pt has had a TIA vs CVA. Pt has no focal deficits. - continue home meds # Dyslipidemia -continue home meds # HTN - continue ho me meds # R ICA Occlusion - stable on last admission, 08/14/19 # Chronic Lymphocytic Leukemia WBC, lymphocytes at baseline. - stable MPOA - Daughter - called EMS; Amparo Ortiz - [phone] Code: DNR Fluids: SL Diet: HH DVT: lovenox Dispo: Obs on medicine FMR H&P: Upper Level - Pertinent history 83 yo M with h/o of chronic right internal carotid artery stenosis, TIA and dementia brought in by EMS for episode of unresponsiveness. History is elicited by daughter and since patient had chronic dementia. Unresponsiveness happened after lunch, was taking a nap and couldn't wake him up. Similar episode has occurred twice before most recently prior to this last hospitalization. At baseline patient is A&O x0 but conversational. Daughter says last time she has seen him at baseline was two weeks ago. States her father hasn't had any complaints. In ER was awake and responsive by the time he arrived. Was found to have a UTI and given rocephin. - Pertinent findings VS: BP 165/83 P 71 RR 18 T 98.6 PE: A&O x1 (person) Neuro: No FND CV:RRR Resp: CTAB, no respiratory distress Labs: UA Bacteria2+, WBC >50 hpf, leukocyte 500, turbid WBC 16, no bands - Plan Date/Time: 04/07/20 1813 #. Uncomplicated UTI -WBC 16 however has CLL, no bandemia or other sirs criteria met -UA: Bacteria, UA, WBC -s/p rocephin, continue, pending UCx #. Encephalopathy -acute vs chronic -May be new patient's baseline given recent hospitalizations and chronic dementia -W/u for encephalopathy negative thus far with neg. troponins, electrolytes WNL. -Could be attributable to UTI -CT head: no new changes -Pt on maximum medical mgmt for his R ICA stenosis, could consider addition of plavix if encephalopathy thought to be attributable to possible TIA. No need for further workup at this point with recent imaging (MRI/CT) negative for CVA last hospitalization and in light of new new neurologic changes. Also patient may not be a good surgical candidate for surgical intervention. Can further discuss with family tomorrow. -Will obtain TSH #. Dementia -Mental status at baseline (A&O x0 but conversational) per daughter/ #. Physical deconditioning - Discussed potential placement/rehab with family. Wants to continue discussion in AM when they can come to hospital #. HTN -Resume home meds #. HLD -Resume home meds #. Hx of R ICA stenosis, chronic #. Hx of TIA -On last hospitalization had full workup Code: DNR Dispo: <2 midnights I, Moriah Blank MD, have evaluated this patient and agree with findings/ plan as outlined by internal control specialist resident. Pertinent changes/additions are listed here. Addendum - Attending - Attending Attestation Date/Time: 08/17/19 0151 I personally evaluated the patient at 2030 and discussed the management with Dr. Salcedo/Abhay. I agree with the History, Examination, Assessment and Plan documented above with any addition or exceptions noted below. 83 yo WM PMH dementia with baseline mentation of A&O to person, known carotid artery stenosis and recent hospitalization for TIA evaluation. presented from home with a CC of worsening mentation and difficulty ambulating. Exam repeated and agree with above. Labs remarkable for possible UTI. CXR and CT brain negative. Observation for altered mental status 2/2 possible UTI. Continue rocephin. Will have discussion with patient's family about placement in nursing facility. Obs, medical, <2 midnight.
[2019-08-16 19:08] LABS: Troponin I Less than 0.010 ng/mL (< 0.028)
[2019-08-16] MEDS ORDERED: Acetaminophen 325 MG TAB PO PRN (19:53)
[2019-08-17] MEDS ORDERED: OLMESARTAN PO SCH ×2 (01:20→09:00)
[2019-08-17] MEDS ORDERED: HYDROCHLOROTHIAZIDE PO SCH ×2 (01:20→09:00)
[2019-08-17] MEDS ORDERED: Calcium Carbonate 500 MG ChewTAB PO PRN (04:29)
[2019-08-17] MEDS ORDERED: Non-Formulary Item 1 EACH (Acetaminophen [Tylenol] 1 CAP) PO PRN (04:29)
[2019-08-17 05:49] LABS: Anion Gap 11 mmol/L (10-20); BUN (Urea Nitrogen) 21 mg/dL (8.4-25.7); Calc. Creatinine Clearance 79 mL/min (70-130); Calcium 9.3 mg/dL (7.8-10.44); Carbon Dioxide 27 mmol/L (23-31); Chloride 99 mmol/L (98-107); Estimated GFR-MDRD 83; Glucose 93 mg/dL (83-110); Potassium 4.1 mmol/L (3.5-5.1); Sodium 133 mmol/L (136-145)
--- NOTE | 2019-08-17 05:58 | PDOC.FM ---
- Subjective Subjective: Patient drowsy on evaluation. A&Ox1. Very soft spoken. Reports continued dysuria , abdominal pain improved Patient's daughter to come to the hospital around 930 to re-evaluate the patient and have further discussions about possible placement. - Objective Vital Signs & Weight: Vital Signs (12 hours) Temp Pulse Resp BP Pulse Ox 08/17/19 03:51 98.1 F 69 20 94 L 08/16/19 23:28 98.1 F 69 18 163/80 H 94 L 08/16/19 20:00 94 L 08/16/19 19:35 97.6 F 68 18 164/77 H 94 L Weight Weight 86 kg Result Diagrams: 08/17/19 05:06 08/17/19 05:06 Phys Exam - Physical Examination Constitutional: NAD HEENT: moist MMs, sclera anicteric Neck: supple, full ROM Respiratory: no wheezing, clear to auscultation bilateral Cardiovascular: RRR, no significant murmur Gastrointestinal: soft, positive bowel sounds slightly suprapubic ttp Musculoskeletal: no edema Neurological: normal sensation, moves all 4 limbs Psychiatric: normal affect Deviation from normal: A&Ox1 Skin: normal turgor Deviation from normal: senile purpura upper arms Dx/Plan (1) Urinary tract infection Status: Acute (2) Altered mental status Code(s): R41.82 - ALTERED MENTAL STATUS, UNSPECIFIED Status: Acute (3) CLL (chronic lymphocytic leukemia) Code(s): C91.10 - CHRONIC LYMPHOCYTIC LEUK OF B-CELL TYPE NOT ACHIEVE REMIS Status: Chronic (4) History of CVA (cerebrovascular accident) Code(s): Z86.73 - PRSNL HX OF TIA (TIA), AND CEREB INFRC W/O RESID DEFICITS Status: Chronic (5) Internal carotid artery stenosis Code(s): I65.29 - OCCLUSION AND STENOSIS OF UNSPECIFIED CAROTID ARTERY Status : Chronic (6) Dyslipidemia Code(s): E78.5 - HYPERLIPIDEMIA, UNSPECIFIED Status: Chronic (7) HTN (hypertension) Code(s): I10 - ESSENTIAL (PRIMARY) HYPERTENSION Status: Chronic - Plan Plan: Pt is an 83M with PMHx of CLL, Dementia, HLD, HTN, TIA, Hx of CVA, R ICA stenosis admitted for: # UTI -UA: neg nitrities, 2+ bacteria, WBC>50, 500 LE - started on ceftriaxone in the ED, continue - urine gram stain shows gram positive cocci in pairs - culture pending # Progressive Dementia vs Acute Metabolic Encephalopathy - Family has stated that the patient has had worsening dementia over the previous year. A&Ox1, which admitting team reports his his baseline. - Can monitor patient with antibiotics for UTI and discuss goals of care with family; patient's daughter to arrive around 930am today to re-evaluate the patient for improvements and discuss possible placement - CM consulted to help with possible placement - PT/OT # Hx of CVA # Recent Discharge for TIA Recent imaging did not reveal CVA. Less likely pt has had a TIA vs CVA. Pt has no focal deficits. - continue home meds # Dyslipidemia -continue home meds # HTN - continue home meds # R ICA Occlusion - stable on last admission, 08/14/19 # Chronic Lymphocytic Leukemia WBC, lymphocytes at baseline. - stable MPOA - Daughter - called EMS; Amparo Ortiz - [phone] Code: DNR Fluids: SL Diet: HH DVT: lovenox Dispo: Obs on medicine. Will have patient work with PT/OT today and discuss goals of care with family. Continue abx for UTI
[2019-08-17 06:29] LABS: Band 2 % (5-11); Eosinophils 2 % (0-10); Hemoglobin 14.7 g/dL (14.0-18.0); Lymphocytes 47 % (21-51); MDiff Complete? YES; Mean Corpuscular HGB CONC 33.6 g/dL (32.0-36.0); Mean Corpuscular Volume 92.3 fL (78.0-98.0); Mean Platelet Volume 7.4 fL (7.4-10.4); Monocytes 5 % (0-10); Neutrophil 44 % (42-75); Platelet Count 163 thou/uL (130-400); Platelet Morphology Comment Appears Adequate; RBC Distribution Width 12.8 % (11.5-14.5); RBC Morphology Normal; Red Blood Cell (RBC) Count 4.75 mill/uL (4.70-6.10); White Blood Cell (WBC) Count 19.1 thou/uL (4.8-10.8)
[2019-08-17] MEDS: Ubidecarenone 50 MG CAP PO SCH (08:54)
[2019-08-17] MEDS: Multivitamin W/ Minerals 1 TAB PO SCH (08:54)
[2019-08-17] MEDS: Enoxaparin Sodium 40 MG/0.4 ML SYRINGE SC SCH (08:54)
[2019-08-17] MEDS: Aspirin 325 mg Enteric Coated Tablet PO SCH (08:54)
[2019-08-17] MEDS: Vit A,C & E/Lutein/Minerals Tablet PO SCH ×2 (08:54→20:50)
[2019-08-17] MEDS: Polyvinyl Alcohol 1.4%/Povidone 0.6% Opth Drops EA EYE SCH ×3 (11:50→20:51)
[2019-08-17 14:09] VITALS: BMI 25.7
[2019-08-17] MEDS ORDERED: cefTRIAXone\\ROCEPHIN 1 GM in Sodium Chloride 0.9% 100 ML IVPB SCH (16:00)
[2019-08-17] MEDS: Metamucil PACK PO SCH (20:51)
[2019-08-17] MEDS: Rosuvastatin 20 MG TAB PO SCH (20:51)
--- NOTE | 2019-08-18 06:16 | PDOC.FM ---
- Subjective Subjective: Patient doing okay today. A&Ox1. No acute events overnight. - Objective Vital Signs & Weight: Vital Signs (12 hours) Temp Pulse Resp BP Pulse Ox 08/18/19 04:33 97.4 F L 65 18 167/83 H 94 L 08/18/19 00:20 98.0 F 65 16 156/77 H 93 L 08/17/19 21:05 92 L 08/17/19 20:14 98.2 F 72 18 152/77 H 92 L Weight Admit Weight 85.729 kg Weight 86 kg I&O: 08/16/19 08/17/19 08/18/19 06:59 06:59 06:59 Intake Total 350 1580 Output Total 650 850 Balance -300 730 Result Diagrams: 08/18/19 05:42 08/18/19 05:42 Phys Exam - Physical Examination Constitutional: NAD HEENT: moist MMs, sclera anicteric Neck: supple, full ROM Respiratory: no wheezing, clear to auscultation bilateral Cardiovascular: RRR, no significant murmur Gastrointestinal: soft, positive bowel sounds some suprapubic ttp Musculoskeletal: no edema, pulses present Neurological: non-focal, moves all 4 limbs Deviation from normal: A&Ox1 Deviation from normal: senile purpura Dx/Plan (1) Urinary tract infection Status: Acute (2) Altered mental status Code(s): R41.82 - ALTERED MENTAL STATUS, UNSPECIFIED Status: Acute (3) CLL (chronic lymphocytic leukemia) Code(s): C91.10 - CHRONIC LYMPHOCYTIC LEUK OF B-CELL TYPE NOT ACHIEVE REMIS Status: Chronic (4) History of CVA (cerebrovascular accident) Code(s): Z86.73 - PRSNL HX OF TIA (TIA), AND CEREB INFRC W/O RESID DEFICITS Status: Chronic (5) Internal carotid artery stenosis Code(s): I65.29 - OCCLUSION AND STENOSIS OF UNSPECIFIED CAROTID ARTERY Status : Chronic (6) Dyslipidemia Code(s): E78.5 - HYPERLIPIDEMIA, UNSPECIFIED Status: Chronic (7) HTN (hypertension) Code(s): I10 - ESSENTIAL (PRIMARY) HYPERTENSION Status: Chronic - Plan Plan: Pt is an 83M with PMHx of CLL, Dementia, HLD, HTN, TIA, Hx of CVA, R ICA stenosis admitted for: # UTI, stable for discharge -UA: neg nitrities, 2+ bacteria, WBC>50, 500 LE - started on ceftriaxone in the ED, continue - urine gram stain shows gram positive cocci in pairs - urine culture: enterococcus faecalis + proteus mirabilis resistant to ciptro and levofloxacin # Progressive Dementia vs Acute Metabolic Encephalopathy - Family has stated that the patient has had worsening dementia over the previous year. A&Ox1, which admitting team reports his his baseline. - Meeting with daughter 08/16; she stated she would be comfortable with the patient going home with HH - CM consulted to help with possible placement, [facility] accepted patient upon discharge - PT/OT # Hx of CVA # Recent Discharge for TIA Recent imaging did not reveal CVA. Less likely pt has had a TIA vs CVA. Pt has no focal deficits. - continue home meds # Dyslipidemia -continue home meds # HTN - continue home meds # R ICA Occlusion - stable on last admission, 08/14/19 # Chronic Lymphocytic Leukemia WBC, lymphocytes at baseline. - stable MPOA - Daughter - called EMS; Amparo Ortiz - [phone] Code: DNR Fluids: SL Diet: HH DVT: lovenox Dispo: Obs on medicine. Will likely d/c patient today with script for abx and plans for HH
[2019-08-18 06:39] LABS: Hemoglobin 15.4 g/dL (14.0-18.0); Mean Corpuscular HGB CONC 32.9 g/dL (32.0-36.0); Mean Corpuscular Hemoglobin 30.1 pg (27.0-31.0); Mean Corpuscular Volume 91.5 fL (78.0-98.0); Mean Platelet Volume 7.3 fL (7.4-10.4); Platelet Count 168 thou/uL (130-400); RBC Distribution Width 12.7 % (11.5-14.5); Red Blood Cell (RBC) Count 5.12 mill/uL (4.70-6.10); White Blood Cell (WBC) Count 17.7 thou/uL (4.8-10.8)
[2019-08-18 06:45] LABS: Band 1 % (5-11); Eosinophils 1 % (0-10); Lymphocytes 59 % (21-51); MDiff Complete? YES; Monocytes 1 % (0-10); Neutrophil 38 % (42-75); Platelet Morphology Comment Appears Adequate
[2019-08-18 06:59] LABS: Anion Gap 12 mmol/L (10-20); BUN (Urea Nitrogen) 20 mg/dL (8.4-25.7); Calc. Creatinine Clearance 80 mL/min (70-130); Calcium 9.5 mg/dL (7.8-10.44); Carbon Dioxide 27 mmol/L (23-31); Chloride 98 mmol/L (98-107); Estimated GFR-MDRD 84; Glucose 92 mg/dL (83-110); Potassium 3.9 mmol/L (3.5-5.1); Sodium 133 mmol/L (136-145)
[2019-08-18] MEDS: Enoxaparin Sodium 40 MG/0.4 ML SYRINGE SC SCH (11:35)
[2019-08-18] MEDS: Aspirin 325 mg Enteric Coated Tablet PO SCH (11:56)
[2019-08-18] MEDS: Vit A,C & E/Lutein/Minerals Tablet PO SCH ×2 (11:56→21:34)
[2019-08-18] MEDS: Ubidecarenone 50 MG CAP PO SCH (11:56)
[2019-08-18] MEDS: Polyvinyl Alcohol 1.4%/Povidone 0.6% Opth Drops EA EYE SCH ×3 (11:57→21:35)
[2019-08-18] MEDS: Rosuvastatin 20 MG TAB PO SCH (21:34)
[2019-08-18] MEDS: Metamucil PACK PO SCH (21:36)
[2019-08-19 06:42] LABS: Mean Corpuscular HGB CONC 32.7 g/dL (32.0-36.0); Mean Corpuscular Hemoglobin 29.9 pg (27.0-31.0); Mean Corpuscular Volume 91.3 fL (78.0-98.0); Mean Platelet Volume 7.3 fL (7.4-10.4); Platelet Count 181 thou/uL (130-400); RBC Distribution Width 12.6 % (11.5-14.5); Red Blood Cell (RBC) Count 5.34 mill/uL (4.70-6.10); White Blood Cell (WBC) Count 18.1 thou/uL (4.8-10.8)
--- NOTE | 2019-08-19 06:52 | PDOC.FM ---
- Subjective Subjective: Patient drowsy this morning, determined to sleep. - Objective Vital Signs & Weight: Vital Signs (12 hours) Temp Pulse Resp BP Pulse Ox 08/19/19 04:00 97.8 F 69 16 168/83 H 92 L 08/19/19 03:45 99.1 F 85 24 H 120/70 94 L 08/19/19 02:47 158/82 H 08/19/19 00:00 97.4 F L 73 18 175/75 H 92 L 08/18/19 20:00 97.5 F L 79 18 155/71 H 92 L Weight Admit Weight 85.729 kg Weight 86 kg I&O: 08/17/19 08/18/19 08/19/19 06:59 06:59 06:59 Intake Total 350 1580 900 Output Total 650 850 350 Balance -300 730 550 Result Diagrams: 08/19/19 05:54 08/19/19 05:54 Phys Exam - Physical Examination Constitutional: NAD dry mm, patient sleeping with his mouth open Neck: supple, full ROM Respiratory: no wheezing, clear to auscultation bilateral Cardiovascular: RRR, no significant murmur Gastrointestinal: soft, non-tender Musculoskeletal: no edema, pulses present Neurological: non-focal, moves all 4 limbs Deviation from normal: drowsy, not agreeable to participate in conversation Skin: no rash Dx/Plan (1) Urinary tract infection Status: Acute (2) Altered mental status Code(s): R41.82 - ALTERED MENTAL STATUS, UNSPECIFIED Status: Acute (3) CLL (chronic lymphocytic leukemia) Code(s): C91.10 - CHRONIC LYMPHOCYTIC LEUK OF B-CELL TYPE NOT ACHIEVE REMIS Status: Chronic (4) History of CVA (cerebrovascular accident) Code(s): Z86.73 - PRSNL HX OF TIA (TIA), AND CEREB INFRC W/O RESID DEFICITS Status: Chronic (5) Internal carotid artery stenosis Code(s): I65.29 - OCCLUSION AND STENOSIS OF UNSPECIFIED CAROTID ARTERY Status : Chronic (6) Dyslipidemia Code(s): E78.5 - HYPERLIPIDEMIA, UNSPECIFIED Status: Chronic (7) HTN (hypertension) Code(s): I10 - ESSENTIAL (PRIMARY) HYPERTENSION Status: Chronic - Plan Plan: Pt is an 83M with PMHx of CLL, Dementia, HLD, HTN, TIA, Hx of CVA, R ICA stenosis admitted for: # UTI, stable for discharge -UA: neg nitrities, 2+ bacteria, WBC>50, 500 LE - started on ceftriaxone in the ED - urine gram stain shows gram positive cocci in pairs - urine culture: enterococcus faecalis + proteus mirabilis resistant to cipro and levofloxacin - transitioned to ampicillin 08/17, can continue on amoxicillin once discharged # Progressive Dementia vs Acute Metabolic Encephalopathy - Family has stated that the patient has had worsening dementia over the previous year. A&Ox1, which admitting team reports is his baseline. - Daughter reports that he was not "himself" when he went home after the last hospitalization; question whether this is the patient's new baseline and whether he will ever return to the state he was in prior to the last hospitalization - Meeting with daughter 08/16; she stated she would be comfortable with the patient going home with HH - CM consulted to help with possible placement, [facility] accepted patient upon discharge - PT/OT recommend rehab vs SNF at this time; patient's daughter reports of a prior "bad experience" with rehab and would prefer patient to go home with HH # Hx of CVA # Recent Discharge for TIA Recent imaging did not reveal CVA. Less likely pt has had a TIA vs CVA. Pt has no focal deficits. - continue home meds # Dyslipidemia -continue home meds # HTN - continue home meds # R ICA Occlusion - stable on last admission, 08/14/19 # Chronic Lymphocytic Leukemia WBC, lymphocytes at baseline. - stable MPOA - Daughter - called EMS; Amparo Diana - [phone] Code: DNR Fluids: SL Diet: HH DVT: lovenox Dispo: inpatient medicine for continued acute metabolic encephalopathy. Continue IV abx. Can consider d/c later this afternoon if patient continues to make progress. Will have conversation with patient's family about his current status and about concerns that this may be patient's new baseline. Can recommend SNF vs Rehab again and discuss further options.
[2019-08-19 06:53] LABS: Anion Gap 14 mmol/L (10-20); BUN (Urea Nitrogen) 21 mg/dL (8.4-25.7); Calc. Creatinine Clearance 65 mL/min (70-130); Calcium 9.7 mg/dL (7.8-10.44); Carbon Dioxide 28 mmol/L (23-31); Chloride 95 mmol/L (98-107); Estimated GFR-MDRD 66; Glucose 100 mg/dL (83-110); Potassium 3.9 mmol/L (3.5-5.1); Sodium 133 mmol/L (136-145)
[2019-08-19 07:25] LABS: Band 1 % (5-11); Lymphocytes 47 % (21-51); MDiff Complete? YES; Monocytes 6 % (0-10); Neutrophil 45 % (42-75); Platelet Morphology Comment Appears Adequate; Polychromasia SLIGHT = 2-3 cells (100X) (0-2/hpf); Reactive Lymphocytes 1 % (0-10)
[2019-08-19] MEDS: Aspirin 325 mg Enteric Coated Tablet PO SCH ×2 (10:45→20:18)
[2019-08-19] MEDS: Ubidecarenone 50 MG CAP PO SCH ×2 (10:45→20:19)
[2019-08-19] MEDS: Vit A,C & E/Lutein/Minerals Tablet PO SCH ×3 (10:45→20:40)
[2019-08-19] MEDS: Multivitamin W/ Minerals 1 TAB PO SCH ×2 (10:45→20:19)
[2019-08-19] MEDS: Enoxaparin Sodium 40 MG/0.4 ML SYRINGE SC SCH (10:46)
[2019-08-19] MEDS ORDERED: Iopamidol-370 76% 500 ML 1 ML ONE (12:31)
--- NOTE | 2019-08-19 13:00 | CT ---
CT of thehead with and without contrast: 08/19/2019 COMPARISON:08/16/2019 HISTORY:Mental status changes, lethargy TECHNIQUE: Serial axial CT imaging at5 mm intervals from thevertex through skull base with and withou t contrast. Findings:The noncontrast enhanced head CT demonstrates cerebral volume loss with associated prominenc e of the CSF containing spaces. There is an arachnoid cyst in the left middle cranial fossa anterior to the left temporal lobe measuring 3.4 cm, stable. The imaged paranasal sinuses and mastoid air cells are well aerated. No displaced calvarial fracture. There is atherosclerotic calcification of the cavernous carotid arteries and the distal left vertebra l artery. The postcontrast imaging demonstrates no abnormal enhancement. IMPRESSION: No acute findings.
[2019-08-19] MEDS: Lactated Ringer's 1,000 ML IV SCH ×2 (13:05→20:41)
[2019-08-19] MEDS: Polyvinyl Alcohol 1.4%/Povidone 0.6% Opth Drops EA EYE SCH ×3 (13:12→20:40)
[2019-08-19] MEDS: Metamucil PACK PO SCH (20:39)
[2019-08-19] MEDS: Rosuvastatin 20 MG TAB PO SCH (20:40)
--- NOTE | 2019-08-20 05:12 | PDOC.FM ---
- Subjective Subjective: Patient doing okay this morning. More alert than yesterday, he would wake up to me saying his name or lightly tapping him on the shoulder. Yesterday it was difficult to wake him up even with a sternal rub. He could not tell me his name , , or answer questions clearly before falling back asleep. - Objective Vital Signs & Weight: Vital Signs (12 hours) Temp Pulse Resp BP Pulse Ox 08/19/19 20:00 99.1 F 74 18 149/70 H 94 L Weight Admit Weight 85.729 kg Weight 86 kg I&O: 08/18/19 08/19/19 08/20/19 06:59 06:59 06:59 Intake Total 9309 146 0476 Output Total 850 350 Balance 155 813 8506 Result Diagrams: 08/20/19 05:28 08/20/19 05:28 Phys Exam - Physical Examination Constitutional: NAD HEENT: sclera anicteric dry mm, mouth has been open while he has been asleep Neck: supple, full ROM Respiratory: no wheezing, clear to auscultation bilateral Cardiovascular: RRR, no significant murmur Gastrointestinal: soft, non-tender Musculoskeletal: no edema, pulses present Neurological: moves all 4 limbs Deviation from normal: A&Ox0 Deviation from normal: senile purpura Dx/Plan (1) Urinary tract infection Status: Acute (2) Altered mental status Code(s): R41.82 - ALTERED MENTAL STATUS, UNSPECIFIED Status: Acute (3) CLL (chronic lymphocytic leukemia) Code(s): C91.10 - CHRONIC LYMPHOCYTIC LEUK OF B-CELL TYPE NOT ACHIEVE REMIS Status: Chronic (4) History of CVA (cerebrovascular accident) Code(s): Z86.73 - PRSNL HX OF TIA (TIA), AND CEREB INFRC W/O RESID DEFICITS Status: Chronic (5) Internal carotid artery stenosis Code(s): I65.29 - OCCLUSION AND STENOSIS OF UNSPECIFIED CAROTID ARTERY Status : Chronic (6) Dyslipidemia Code(s): E78.5 - HYPERLIPIDEMIA, UNSPECIFIED Status: Chronic (7) HTN (hypertension) Code(s): I10 - ESSENTIAL (PRIMARY) HYPERTENSION Status: Chronic - Plan Plan: Pt is an 83M with PMHx of CLL, Dementia, HLD, HTN, TIA, Hx of CVA, R ICA stenosis admitted for: # UTI, stable for discharge -UA: neg nitrities, 2+ bacteria, WBC>50, 500 LE - started on ceftriaxone in the ED - urine gram stain shows gram positive cocci in pairs - urine culture: enterococcus faecalis + proteus mirabilis resistant to cipro and levofloxacin - transitioned to ampicillin 08/17, can continue on amoxicillin once discharged if patient tolerating po # Progressive Dementia vs Acute Metabolic Encephalopathy - Family has stated that the patient has had worsening dementia over the previous year. A&Ox1, which admitting team reports is his baseline. - Daughter reports that he was not "himself" when he went home after the last hospitalization; question whether this is the patient's new baseline and whether he will ever return to the state he was in prior to the last hospitalization - Meeting with daughter 08/16; she stated she would be comfortable with the patient going home with HH - CM consulted to help with possible placement, [facility] accepted patient upon discharge - PT/OT recommend SNF at this time based on patient's inability to participate with PT 08/18; patient's daughter reports of a prior "bad experience" with rehab and would prefer patient to go home with HH -Had lengthy discussion with family at bedside about patient's current state and possible expectations that this could be his new baseline; discussed recommendations of SNF placement as patient's would be unlikely to take care of patient by herself even with the help of HH -CM consulted again 08/18, discussed SNF placement vs HH vs home with hospice with family; referrals sent to [facility] and [facility]. CM to follow up with family again today. Palliative consult placed, available to speak with family on thursday #Decreased PO intake -IVF started 08/18 -prn hydralazine for BP as patient is not tolerating PO #Hyponatremia -transition from LR to NS today # Hx of CVA # Recent Discharge for TIA Recent imaging did not reveal CVA. Less likely pt has had a TIA vs CVA. Pt has no focal deficits. - continue home meds # Dyslipidemia -continue home meds # HTN - continue home meds # R ICA Occlusion - stable on last admission, 08/14/19 # Chronic Lymphocytic Leukemia WBC, lymphocytes at baseline. - stable MPOA - Daughter - called EMS; [facility] - [phone] Code: DNR Fluids: NS @ 110 Diet: HH DVT: lovenox Dispo: inpatient medicine for continued acute metabolic encephalopathy vs progressive dementia. Continue IV abx. Can consider d/c later this afternoon if patient accepted to SNF and family still agreeable. Palliative consulted, not to see patient until Thursday. CM to follow up with family regarding wishes for HH vs home with hospice vs SNF placement. Will f/u with CM.
[2019-08-20 06:11] LABS: Hemoglobin 16.3 g/dL (14.0-18.0); Mean Corpuscular HGB CONC 32.3 g/dL (32.0-36.0); Mean Corpuscular Hemoglobin 29.8 pg (27.0-31.0); Mean Corpuscular Volume 92.2 fL (78.0-98.0); Mean Platelet Volume 7.3 fL (7.4-10.4); Platelet Count 177 thou/uL (130-400); RBC Distribution Width 12.8 % (11.5-14.5); Red Blood Cell (RBC) Count 5.49 mill/uL (4.70-6.10); White Blood Cell (WBC) Count 17.6 thou/uL (4.8-10.8)
[2019-08-20 06:18] LABS: Eosinophils 2 % (0-10); Lymphocytes 45 % (21-51); MDiff Complete? YES; Monocytes 9 % (0-10); Neutrophil 42 % (42-75); Reactive Lymphocytes 2 % (0-10)
[2019-08-20] MEDS: Lactated Ringer's 1,000 ML IV SCH (06:24)
[2019-08-20 06:25] LABS: Anion Gap 12 mmol/L (10-20); BUN (Urea Nitrogen) 21 mg/dL (8.4-25.7); Calc. Creatinine Clearance 79 mL/min (70-130); Calcium 9.8 mg/dL (7.8-10.44); Carbon Dioxide 27 mmol/L (23-31); Chloride 97 mmol/L (98-107); Estimated GFR-MDRD 83; Glucose 87 mg/dL (83-110); Potassium 4.2 mmol/L (3.5-5.1); Sodium 132 mmol/L (136-145)
[2019-08-20] MEDS: Sodium Chloride 0.9% 1,000 ML IV SCH ×2 (07:08→20:11)
[2019-08-20] MEDS: hydrALAZINE 20 MG/ML VIAL SLOW IVP PRN (08:49)
[2019-08-20] MEDS: Enoxaparin Sodium 40 MG/0.4 ML SYRINGE SC SCH (08:51)
[2019-08-20] MEDS: Aspirin 325 mg Enteric Coated Tablet PO SCH (08:51)
[2019-08-20] MEDS: Polyvinyl Alcohol 1.4%/Povidone 0.6% Opth Drops EA EYE SCH ×3 (08:52→20:07)
[2019-08-20] MEDS: Vit A,C & E/Lutein/Minerals Tablet PO SCH ×2 (08:57→20:07)
[2019-08-20] MEDS: Ubidecarenone 50 MG CAP PO SCH (08:57)
[2019-08-20 12:18] LABS: Free T4 (Free Thyroxine) 1.1 ng/dL (0.70-1.48)
[2019-08-20] MEDS: Rosuvastatin 20 MG TAB PO SCH (20:07)
[2019-08-20] MEDS: Metamucil PACK PO SCH (20:07)
[2019-08-21] MEDS: Sodium Chloride 0.9% 1,000 ML IV SCH ×3 (05:08→20:29)
--- NOTE | 2019-08-21 05:22 | PDOC.FM ---
- Subjective Subjective: Patient sleeping this morning. Woke up to his name and then quickly went back to sleep. A&Ox0. - Objective Vital Signs & Weight: Vital Signs (12 hours) Temp Pulse Resp BP Pulse Ox 08/20/19 20:31 97.5 F L 88 20 168/86 H 94 L Weight Admit Weight 85.729 kg Weight 86 kg I&O: 08/19/19 08/20/19 08/21/19 06:59 06:59 06:59 Intake Total 900 3050 Output Total 350 Balance 550 3050 Result Diagrams: 08/20/19 05:28 08/20/19 05:28 Phys Exam - Physical Examination Constitutional: NAD HEENT: moist MMs, sclera anicteric Neck: supple, full ROM Respiratory: no wheezing, clear to auscultation bilateral Cardiovascular: RRR, no significant murmur Gastrointestinal: no distention, positive bowel sounds abdomen feels less soft than previously Musculoskeletal: no edema, pulses present Neurological: normal sensation, moves all 4 limbs Deviation from normal: A&Ox0 Skin: normal turgor Deviation from normal: senile purpura BUE Dx/Plan (1) Urinary tract infection Status: Acute (2) Altered mental status Code(s): R41.82 - ALTERED MENTAL STATUS, UNSPECIFIED Status: Acute (3) CLL (chronic lymphocytic leukemia) Code(s): C91.10 - CHRONIC LYMPHOCYTIC LEUK OF B-CELL TYPE NOT ACHIEVE REMIS Status: Chronic (4) History of CVA (cerebrovascular accident) Code(s): Z86.73 - PRSNL HX OF TIA (TIA), AND CEREB INFRC W/O RESID DEFICITS Status: Chronic (5) Internal carotid artery stenosis Code(s): I65.29 - OCCLUSION AND STENOSIS OF UNSPECIFIED CAROTID ARTERY Status : Chronic (6) Dyslipidemia Code(s): E78.5 - HYPERLIPIDEMIA, UNSPECIFIED Status: Chronic (7) HTN (hypertension) Code(s): I10 - ESSENTIAL (PRIMARY) HYPERTENSION Status: Chronic - Plan Plan: Pt is an 83M with PMHx of CLL, Dementia, HLD, HTN, TIA, Hx of CVA, R ICA stenosis admitted for: # UTI, stable for discharge -UA: neg nitrities, 2+ bacteria, WBC>50, 500 LE - started on ceftriaxone in the ED - urine gram stain shows gram positive cocci in pairs - urine culture: enterococcus faecalis + proteus mirabilis resistant to cipro and levofloxacin - transitioned to ampicillin 08/17, can continue on amoxicillin once discharged if patient tolerating po # Progressive Dementia vs Acute Metabolic Encephalopathy - Family has stated that the patient has had worsening dementia over the previous year. A&Ox1, which admitting team reports is his baseline. - Daughter reports that he was not "himself" when he went home after the last hospitalization; question whether this is the patient's new baseline and whether he will ever return to the state he was in prior to the last hospitalization - Meeting with daughter 08/16; she stated she would be comfortable with the patient going home with HH - CM consulted to help with possible placement, [facility] accepted patient upon discharge - PT/OT recommend SNF at this time based on patient's inability to participate with PT 08/18; patient's daughter reports of a prior "bad experience" with rehab and would prefer patient to go home with HH -Had lengthy discussion with family at bedside about patient's current state and possible expectations that this could be his new baseline; discussed recommendations of SNF placement as patient's would be unlikely to take care of patient by herself even with the help of HH -CM consulted again 08/18, discussed SNF placement vs HH vs home with hospice with family; referrals sent to [facility]. CM followed up with family again 08/19. Family have decided they would like to pursue [facility] and are preparing things at home before the patient is discharged home with hospice, likely Thursday if accepted. Palliative consult placed, available to speak with family on thursday #Decreased PO intake -tolerated 25% of breakfast 08/19, no dinner -IVF started 08/18 -prn hydralazine for BP as patient is not tolerating PO #Constipation -has not had BM since he has been here; he has had decreased PO intake but in light of less soft abdomen will try miralax/suppository -miralax scheduled if patient will take PO -dulcolax suppository prn #Hyponatremia -on NS # Hx of CVA # Recent Discharge for TIA Recent imaging did not reveal CVA. Less likely pt has had a TIA vs CVA. Pt has no focal deficits. - continue home meds # Dyslipidemia -continue home meds # HTN - continue home meds - hydralazine prn for elevated BP as patient is not tolerating PO # R ICA Occlusion - stable on last admission, 08/14/19 # Chronic Lymphocytic Leukemia WBC, lymphocytes at baseline. - stable MPOA - Daughter - called EMS; [facility] Ort[facility] - [phone] Code: DNR Fluids: NS @ 110 Diet: HH DVT: lovenox Dispo: inpatient medicine for continued acute metabolic encephalopathy vs progressive dementia. Continue IV abx. Family organizing affairs for patient to return home with [facility], likely thursday if accepted. Palliative consulted, not to see patient until Thursday.
[2019-08-21] MEDS ORDERED: Bisacodyl 10 MG SUPP PR PRN (07:24)
[2019-08-21] MEDS ORDERED: Polyethylene Glycol 3350 17 GM Packet PO SCH (07:30)
[2019-08-21] MEDS: hydrALAZINE 20 MG/ML VIAL SLOW IVP PRN (07:46)
[2019-08-21] MEDS: Multivitamin W/ Minerals 1 TAB PO SCH (07:48)
[2019-08-21] MEDS: Enoxaparin Sodium 40 MG/0.4 ML SYRINGE SC SCH (07:48)
[2019-08-21] MEDS: Aspirin 325 mg Enteric Coated Tablet PO SCH (07:48)
[2019-08-21] MEDS: Vit A,C & E/Lutein/Minerals Tablet PO SCH ×2 (07:49→20:45)
[2019-08-21] MEDS: Polyvinyl Alcohol 1.4%/Povidone 0.6% Opth Drops EA EYE SCH ×3 (07:49→20:29)
[2019-08-21] MEDS: Ubidecarenone 50 MG CAP PO SCH (07:49)
[2019-08-21] MEDS ORDERED: Bisacodyl 10 MG SUPP PR ONE (09:30)
[2019-08-21] MEDS: Metamucil PACK PO SCH (20:44)
[2019-08-21] MEDS: Rosuvastatin 20 MG TAB PO SCH (20:45)
--- NOTE | 2019-08-22 05:47 | PDOC.FM ---
- Subjective Subjective: At baseline mentation per nurse. No acute events overnight. Resting comfortably. Plan for discharge today to hospice once arranged with family. - Objective MAR Reviewed: Yes Vital Signs & Weight: Vital Signs (12 hours) Temp Pulse Resp BP Pulse Ox 08/22/19 04:10 97.8 F 08/21/19 20:00 100.2 F H 88 20 166/87 H 95 Weight Admit Weight 85.729 kg Weight 86 kg I&O: 08/20/19 08/21/19 08/22/19 06:59 06:59 06:59 Intake Total 3050 Balance 3050 Result Diagrams: 08/20/19 05:28 08/20/19 05:28 Phys Exam - Physical Examination Constitutional: NAD (resting comfortably) HEENT: moist MMs Neck: supple Respiratory: no wheezing, no rales, no rhonchi, clear to auscultation bilateral Cardiovascular: RRR Gastrointestinal: soft, non-tender, no distention, positive bowel sounds Musculoskeletal: no edema Dx/Plan (1) Urinary tract infection Status: Acute (2) Altered mental status Code(s): R41.82 - ALTERED MENTAL STATUS, UNSPECIFIED Status: Acute (3) CLL (chronic lymphocytic leukemia) Code(s): C91.10 - CHRONIC LYMPHOCYTIC LEUK OF B-CELL TYPE NOT ACHIEVE REMIS Status: Chronic (4) History of CVA (cerebrovascular accident) Code(s): Z86.73 - PRSNL HX OF TIA (TIA), AND CEREB INFRC W/O RESID DEFICITS Status: Chronic - Plan Plan: 83yo M with PMHx of CLL, Dementia, HLD, HTN, TIA, Hx of CVA, R ICA stenosis admitted for: #Complicated UTI, stable for discharge -UA: neg nitrities, 2+ bacteria, WBC>50, 500 LE - UCx E faecalis + proteus mirabilius resistant to cipro and levoquin - Initially on Rocephin x2d doses, transitioned to ampicillin, Day 7 of abx total today #Progressive Dementia vs Acute Metabolic Encephalopathy - Family has stated that the patient has had worsening dementia over the previous year. A&Ox1, which admitting team reports is his baseline. - Daughter reports that he was not "himself" when he went home after the last hospitalization; question whether this is the patient's new baseline and whether he will ever return to the state he was in prior to the last hospitalization - Meet with daughter 08/16; she stated she would be comfortable with the patient going home with HH - CM consulted to help with possible placement, [facility] accepted patient upon discharge - PT/OT recommend SNF at this time based on patient's inability to participate with PT 08/18; patient's daughter reports of a prior "bad experience" with rehab and would prefer patient to go home with HH -Had lengthy discussion with family at bedside about patient's current state and possible expectations that this could be his new baseline; discussed recommendations of SNF placement as patient's would be unlikely to take care of patient by herself even with the help of HH -CM consulted again 08/18, discussed SNF placement vs HH vs home with hospice with family; referrals sent to [facility] and [facility]. CM followed up with family again 08/19. Family have decided they would like to pursue [facility] and are preparing things at home before the patient is discharged home with hospice, likely Thursday if accepted. Palliative consult placed, available to speak with family on today #Decreased PO intake - tolerated 25% of breakfast 08/19, no dinner - IVF started 08/18 with [facility] - prn hydralazine for BP as patient is not tolerating PO #Constipation - No recent BM, exam benign - s/p suppository, will cont bowel regime, likely 2/2 to decreased PO intake #Hyponatremia - on NS, liklely 2/2 hypovolemia #Hx of CVA - Recent Discharge for TIA - Recent imaging did not reveal CVA. Less likely pt has had a TIA vs CVA. Pt has no focal deficits. - continue home meds #Dyslipidemia - continue home meds, likely discontinue with transition to hospice #HTN - continue home meds - hydralazine prn for elevated BP as patient is not tolerating PO #R ICA Occlusion - stable on last admission, 08/14/19 #Chronic Lymphocytic Leukemia - WBC, lymphocytes at baseline, stable MPOA - Daughter - called EMS; [facility] - [phone] Code: DNR Fluids: NS @ 110 Diet: HH DVT: lovenox Dispo: Admitted to inpatient medicine for continued acute metabolic encephalopathy vs progressive dementia. Continue IV abx for UTI. Family organizing affairs for patient to return home with [facility], likely today if accepted. Palliative consulted, apprec recs. Addendum - Attending - Attending Attestation Date/Time: 08/22/19 7820 I personally evaluated the patient and discussed the management with Dr. Gao. I agree with the History, Examination, Assessment and Plan documented above with any addition or exceptions noted below. Patient stable. Gent x1 for Proteus UTI. Discharge today for home hospice care.
[2019-08-22 07:52] VITALS: TEMP 98
[2019-08-22] MEDS: hydrALAZINE 20 MG/ML VIAL SLOW IVP PRN ×2 (07:55→12:46)
[2019-08-22] MEDS: Sodium Chloride 0.9% 1,000 ML IV SCH (07:55)
[2019-08-22] MEDS: Aspirin 325 mg Enteric Coated Tablet PO SCH (07:56)
[2019-08-22] MEDS: Enoxaparin Sodium 40 MG/0.4 ML SYRINGE SC SCH (07:56)
[2019-08-22] MEDS: Polyvinyl Alcohol 1.4%/Povidone 0.6% Opth Drops EA EYE SCH ×2 (07:57→15:15)
[2019-08-22] MEDS: Vit A,C & E/Lutein/Minerals Tablet PO SCH (07:58)
[2019-08-22] MEDS: Ubidecarenone 50 MG CAP PO SCH (07:58)
[2019-08-22] MEDS ORDERED: Polyethylene Glycol 3350 17 GM Packet PO SCH (09:00)
[2019-08-22] MEDS ORDERED: Gentamicin Sulfate 80 MG in Premix Bag 1 BAG IVPB SCH (11:15)
[2019-08-22 14:22] VITALS: BP 153/85
--- NOTE | 2019-08-23 10:36 | DIS ---
DATE OF ADMISSION: 08/18/2019 DATE OF DISCHARGE: 08/22/2019 RESIDENT: Dr. Emerson Gao. ADMITTING ATTENDING: Dr. Cecil Colon. DISCHARGE ATTENDING: Dr. Joshua Knight. CONSULTS: 1. Palliative Care. 2. Hospice. PROCEDURES: 1. Chest x-ray on 08/16/2019, demonstrating no acute cardiopulmonary process. Atherosclerosis. 2. Brain CT on 08/16/2019, demonstrating no acute intracranial process. No significant interval change. 3. Brain CT on 08/19/2019, demonstrating no acute findings. PRIMARY DIAGNOSES: 1. Complicated urinary tract infection, treated. 2. Progressive dementia. 3. Decreased p.o. intake. SECONDARY DIAGNOSES: 1. Constipation. 2. Hyponatremia. 3. History of cerebrovascular accident. 4. Dyslipidemia. 5. Hypertension. 6. Right ICA occlusion. 7. Chronic lymphocytic leukemia. DISCHARGE MEDICATIONS: 1. Benefiber 2 teaspoons p.o. q.h.s. 2. CoQ10 of 200 mg p.o. daily. 3. Benicar HCT 40 mg/25 mg 0.5 tablet p.o. daily. 4. Tums 1000 mg p.o. q.i.d. p.r.n. 5. Refresh eye drops two drops each eye t.i.d. p.r.n. 6. Memantine 5 mg p.o. daily. 7. Multivitamin one tablet every other day. 8. Aspirin 325 mg p.o. daily. 9. Crestor 20 mg p.o. q.h.s. 10. Namenda 10 mg p.o. q.h.s. DISCONTINUED MEDICATIONS: None. HISTORY OF PRESENT ILLNESS AND HOSPITAL COURSE: The patient is an 83-year-old male with past medical history significant for dementia, hyperlipidemia, history of TIA and CVA, and chronic lymphocytic leukemia, who presented for altered mental status. Of note, he was discharged two days prior to admission for a TIA workup after altered mental status. He lives with his and daughter, who are primary caregivers. The patient was A and O x0 on initial presentation, but did say he has pain with urination. At recent hospitalization, the patient was negative for acute CVA, but chronic changes were noted. He has stable right ICA stenosis. In the emergency department, he was found to have a possible UTI, given Rocephin, and admitted for complicated UTI with acute metabolic encephalopathy. Regarding the patient's UTI, urine culture demonstrated E faecalis and Proteus resistant to Cipro and Levaquin, susceptible to ampicillin. The patient was continued on a dose of ampicillin after receiving initially Rocephin x2 days. He received a total of seven days of antibiotics. The patient was also given a loading dose of gentamicin on the day of discharge. This is adequate treatment for his UTI and thus will not require any further antibiotics as an outpatient. The patient was initially admitted for acute metabolic encephalopathy likely on top of dementia. Further history obtained from family demonstrated that he has had progressive dementia over the past year and A and O x1 at baseline and had not been acting himself recently. Case Management and Palliative Care were consulted and had discussions with the patient's family as well as with the primary team regarding the patient's ultimate discharge plan. Initially, the discussion was for the patient to be discharged to correction facility, but after further discussion and goals of care for the patient, it was decided the patient would be discharged home with home hospice secondary to the progressive dementia. Throughout the hospitalization, the patient did not take very much p.o. intake. IV fluids were continued as necessary. The patient was encouraged to eat for comfort feeds. Home hospice will be able to assist with this. Regarding the patient's chronic medical conditions, his home medications were continued with no acute flares. At the time of discharge, the patient was stable and appeared at baseline. A and O x1. Discharge plan was discussed with family, who voiced agreement and understanding and wishes the patient be discharged home with home hospice. All questions were answered appropriately. The patient was discharged home with home hospice. DISPOSITION: Stable. DISCHARGE INSTRUCTIONS: 1. Location: Home with home hospice. 2. Diet: Regular as tolerated. 3. Activity: As tolerated. 4. Followup: The patient is to follow up with their primary care physician within 1 week of discharge. Job ID: [id number]
== END 2019-08-22 15:33 | disposition hospice, home (50) | DRG 690 ==
LOC: ERS 14:18 → T4-B 18:17 → INTOOBSV 18:17 → OBSVTOIN 08-18 15:22
PROVIDERS: ADMIT Family Medicine; ATTEND Family Medicine
DX: N39.0 Urinary tract infection, site not specified (principal); E87.1 Hypo-osmolality and hyponatremia; Z16.29 Resistance to other single specified antibiotic; C91.10 Chronic lymphocytic leukemia of B-cell type not having achieved remission; Z66 Do not resuscitate; F03.90 Unspecified dementia, unspecified severity, without behavioral disturbance, psychotic disturbance, mood disturbance, and anxiety; K59.00 Constipation, unspecified; E78.5 Hyperlipidemia, unspecified; I10 Essential (primary) hypertension; Z51.5 Encounter for palliative care; Z86.73 Personal history of transient ischemic attack (TIA), and cerebral infarction without residual deficits
CPT/HCPCS: 36415; 70450; 70470; 71045; 80048; 80053; 81003; 81015; 82140; 82330; 82550; 82803; 84439; 84443; 84481; 84484; 85007; 85025; 85027; 87077; 87086; 87186; 87205; 93005; 96365; J0290; J0360; J0696; J1580; J1650; J3490; Q9967